=== PATIENT | male | born 1930 | race Caucasian/White ===

== ENCOUNTER → 2016-12-09 | Outpatient (CLI) | payer MEDICARE, OTHER ==
--- NOTE | 2016-12-09 16:29 | RADRPT ---
Echocardiogram Report Patient Name: SAMUEL ROGERS Gender: Male Date: 1930 Study Date: 09-Dec-2016 [employer] Slide As[employer]er: [facility] Location: EKG Ref. Physician: YOGESH LI Quality: Adequate Procedures: Transthoracic echocardiogram with complete 2D, M-Mode, and doppler examination. Indications: Murmur. 2D/M Mode Doppler Measurement Value Normal Ranges Measurement Value Normal Ranges LVIDd 2D 4.1 3.5 - 5.6 cm RAFY Vmax 1.2 cm2 LVIDs 2D 3.1 2.1 - 4.1 cm RAFY VTI 1.2 cm2 LVPWd 2D 1.6 0.6 - 1.1 cm AV Mean King 0.9 m/sec IVSd 2D 1.6 0.6 - 1.1 cm AV Mean PG 4.2 mmHg AoR Diam 2D 3.3 2.0 - 3.7 cm AV Peak King 1.5 m/sec EDV 2D 74.4 cm3 AV Peak PG 8.9 mmHg ESV 2D 28.4 cm3 AV VTI 28.8 cm LVOT Diam 1.7 cm AI Peak PG 64.5 mmHg AI Peak King 4.0 m/sec AI PHT 475.8 msec LVOT Mean King 0.6 m/sec LVOT Mean PG 1.4 mmHg LVOT Peak King 0.8 m/sec LVOT Peak PG 2.4 mmHg LVOT VTI 18.7 cm MV E Peak King 0.7 m/sec MV A Peak King 1.1 m/sec MV E/A 0.7 MV Decel Time 289 msec MV Decel Vernon 3 MV E/A 0.7 TR Peak King 2.7 m/sec TR Peak PG 29.0 mmHg RVSP 32.0 mmHg Findings Left Ventricle: Lower limits of normal systolic function. Normal left ventricular cavity size. Moderate concentric left ventricular hypertrophy. Ejection fraction is visually estimated at 5055 %. Tissue Doppler/Mitral Doppler indices are consistent with impaired relaxation (Stage I diastolic dysfunction). Right Ventricle: Normal right ventricular size. Normal right ventricular systolic function. Left Atrium: The left atrium is normal in size. Right Atrium: The right atrium is normal in size. Mitral Valve: Mild mitral leaflet calcification. Mild mitral annular calcification. Mild mitral valve regurgitation. Aortic Valve: Aortic valve Max velocity 1.49 m/sec. Max PG 8.90 mmHg. Mean PG 4.20 mmHg. Aortic valve area 1.50 cm2. Aortic sclerosis without stenosis. Mild to moderate aortic valve regurgitation. Tricuspid Valve: Normal appearance of the tricuspid valve. Estimated peak PA systolic pressure 32 mmHg. There is mild tricuspid regurgitation. Pulmonic Valve: Normal pulmonic valve appearance. There is mild pulmonic regurgitation. Pericardium: Normal pericardium with no significant pericardial effusion. Aorta: Normal aortic root. IVC: Normal size and normal respiratory collapse consistent with normal right atrial pressure. Conclusions 1.Lower limits of normal systolic function. Normal left ventricular cavity size. Moderate concentric left ventricular hypertrophy. Ejection fraction is visually estimated at 50-55 %. Tissue Doppler/Mitral Doppler indices are consistent with impaired relaxation (Stage I diastolic dysfunction). 2.Mild mitral valve regurgitation. 3.Mean PG 4.20 mmHg. Aortic valve area 1.50 cm2. 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 Mild to moderate aortic valve regurgitation. 4.Estimated peak PA systolic pressure 32 mmHg. There is mild tricuspid regurgitation. 5.Normal pulmonic valve appearance. There is mild pulmonic regurgitation. Electronically Signed By: Yogesh Li 09-Dec-2016 16:28:02 -0700 Patient Name: SAMUEL ROGERS Study Date: 09-Dec-2016 [id number]
== END | disposition home or self-care (01) ==
LOC: EKG 11:13
PROVIDERS: ATTEND Internal Medicine
DX: R01.1 Cardiac murmur, unspecified (principal)
CPT/HCPCS: 93306